=== PATIENT | male | born 1990 | race Caucasian/White ===

== ENCOUNTER 2021-04-30 18:25 | Emergency (ER) | payer BC ==
[~2021-04-30] VITALS: Ht 185.4 cm; Wt 129.0 kg
[2021-04-30] MEDS ORDERED: AUGM875T28 PO (18:47)
[2021-04-30] MEDS ORDERED: IVIG (18:47)
[2021-04-30] MEDS ORDERED: NS 1,000 ML IV ONE (20:15)
[2021-04-30 21:29] LABS: BASO # 0.1 10^3/uL (0.0-0.2); BASO % 0.5 % (0.0-1.0); EOS # 0.1 10^3/uL (0.0-0.5); EOS % 0.4 % (0.0-3.0); HEMATOCRIT 46.3 % (42.0-52.0); HEMOGLOBIN 15.5 g/dl (13.5-17.5); LYMPH # 3.7 10^3/uL (1.5-5.0); LYMPH % 30.1 % (24.0-44.0); MEAN CORPUSCULAR HEMOGLOBIN 29.5 pg (27.0-33.0); MEAN CORPUSCULAR HGB CONC 33.5 g/dl (32.0-36.5); MONO # 1.2 10^3/uL (0.0-0.8); MONO % 9.6 % (2.0-8.0); NEUTROPHILS # 7.3 10^3/uL (1.5-8.5); NEUTROPHILS % 59.2 % (36.0-66.0); PLATELET COUNT, AUTOMATED 297 10^3/uL (150-450); RED BLOOD COUNT 5.26 10^6/uL (4.30-6.10); WHITE BLOOD COUNT 12.3 10^3/uL (4.0-10.0)
[2021-04-30] MEDS ORDERED: KETOROLAC 30 MG/ML 1ML VIAL IV ONE ×2 (21:30→22:30)
--- NOTE | 2021-04-30 21:39 | REPVR ---
PROCEDURE INFORMATION: Exam: CT Abdomen And Pelvis Without Contrast Exam date and time: 04/30/2021 8:29 PM Age: 30 years old Clinical indication: Other: L flank pain, R/O kidney stone TECHNIQUE: Imaging protocol: Computed tomography of the abdomen and pelvis without contrast. Radiation optimization: All CT scans at this facility use at least one of these dose optimization techniques: automated exposure control; mA and/or kV adjustment per patient size (includes targeted exams where dose is matched to clinical indication); or iterative reconstruction. COMPARISON: No relevant prior studies available. FINDINGS: Liver: Unremarkable. No mass. Gallbladder and bile ducts: Normal. No calcified stones. No ductal dilation. Pancreas: Normal. No ductal dilation. Spleen: Normal. No splenomegaly. Adrenal glands: Normal. No mass. Kidneys and ureters: Mildly distended left ureter. No ureteral stones are seen. No hydronephrosis on the right. Kidneys are unremarkable. Stomach and bowel: Unremarkable. No obstruction. No inflammatory changes or mucosal thickening. Appendix: No evidence of appendicitis. Intraperitoneal space: No free air. No significant fluid collection. Vasculature: Unremarkable. No abdominal aortic aneurysm. Lymph nodes: Unremarkable. No enlarged lymph nodes. Urinary bladder: There is a 2 mm calculus in the urinary bladder adjacent to the left ureterovesical junction. Urinary bladder is decompressed and otherwise unremarkable. No bladder wall thickening. Reproductive: Unremarkable as visualized. Bones/joints: Unremarkable. No acute fracture. Soft tissues: Unremarkable. IMPRESSION: Mildly distended left ureter with presumably recently passed 3 mm stone in the urinary bladder. No other urinary tract calculi. Electronically signed by: José Elliott On 04/30/2021 21:39:09 PM
[2021-04-30 21:54] LABS: ALBUMIN 4.5 GM/DL (3.2-5.2); BILIRUBIN,DIRECT 0.2 MG/DL (0.0-0.2); BILIRUBIN,TOTAL 0.4 MG/DL (0.2-1.0); TOTAL PROTEIN 7.7 GM/DL (6.4-8.2)
[2021-04-30] MEDS ORDERED: ACETAMINOPHEN 500 MG TAB PO ONE (22:30)
[2021-04-30] MEDS ORDERED: LIDOCAINE 5% (LIDODERM) PATCH TD ONE (22:30)
[2021-04-30] MEDS ORDERED: TAMSULOSIN 0.4 MG CAP PO ONE (22:30)
[2021-04-30] MEDS ORDERED: FLOM0.4C39 PO (22:32)
[2021-04-30] MEDS ORDERED: KETO10TAB PO (23:36)
[2021-04-30] MEDS ORDERED: OXYCODONE/APAP 5MG/325MG(BULK FOR ED) 1 TABLET PO ONE (23:40)
[2021-05-01 00:24] VITALS: BP 136/90
[2021-05-01] MEDS ORDERED: **NOTE PATIENT COMMENT** MISC XX SCH (21:00)
== END 2021-05-01 00:26 | disposition home or self-care (01) ==
LOC: M ED 18:25
DX: N23 Unspecified renal colic (principal); N21.0 Calculus in bladder; D80.0 Hereditary hypogammaglobulinemia
CPT/HCPCS: 74176; 80047; 80076; 81001; 83690; 85025; 96361; 96374; 96375; 99284; J1885